=== PATIENT | female | born 1955 | race Caucasian/White ===

== ENCOUNTER 2016-08-27 18:47 | Emergency (ER) | payer BC ==
[2016-08-27] MEDS ORDERED: IBUPROFEN 600 MG TABLET PO ONE (19:02)
--- NOTE | 2016-08-27 19:08 | Emergency Department Record ---
History of Present Illness - General Chief Complaint: Fall Injury Stated Complaint: FALL INJURY TO RT HAND Time Seen by Provider: 08/27/16 19:02 Source: Patient Mode of Arrival: Ambulatory Limitations: No limitations - History of Present Illness Initial Comments: 61 yo female presents to ED with a CC of right thumb and wrist pain following a fall approximately 2 hours ago. Patient reports the majority of her pain symptoms are to the base of the thumb with movement. Patient denies pain or injury over the elbow or shoulder. Patient denies other injury, and denies health problems at her baseline. MD Complaint: Fall Onset/Timin -: Hour(s) Fall From: Standing When Fall Occurred: 1-3 hours [employer] Fall Witnessed: Yes, by family Place Fall Occurred: Other Loss of Consciousness: None Prolonged Down Time?: No Symptoms Prior to Fall: None Location - Extremities: Right: Forearm, Hand Severity: Moderate Quality: Aching - Narcisa Coma Scale Eye Response: (4) Open spontaneously Motor Response: (6) Obeys commands Verbal Response: (5) Oriented Narcisa Total: 15 - Related Data Home Medications Medication Instructions Recorded Confirmed Last Taken Cetirizine HCl [Zyrtec] 10 mg PO DAILY 08/27/16 08/27/16 Unknown Fluoxetine HCl [Prozac] 20 mg PO DAILY 08/27/16 08/27/16 Unknown Methylphenidate HCl [Concerta] 36 mg PO DAILY 08/27/16 08/27/16 Unknown Allergies Allergy/AdvReac Type Severity Reaction Status Date / Time adhesive tape Allergy HYPERSENSIT Verified 08/27/16 19:05 IVITY nitrofurantoin Allergy PT UNSURE Verified 08/27/16 19:05 [From Macrodantin] OF REACTION venlafaxine [From Effexor] Allergy HIVES Verified 08/27/16 19:05 Review of Systems Constitutional: Denies: Chills, Fever, Malaise, Night sweats Eyes: Denies: Eye discharge, Eye pain ENT: Denies: Congestion, Ear pain, Epistaxis Respiratory: Denies: Cough, Dyspnea Cardiovascular: Denies: Chest pain, Dyspnea on exertion Endocrine: Denies: Fatigue, Heat or cold intolerance Gastrointestinal: Denies: Abdominal pain, Nausea, Vomiting Genitourinary: Denies: Incontinence, Retention Musculoskeletal: Reports: Arthralgia. Denies: Back pain, Gout, Joint swelling Skin: Denies: Bruising, Change in color Neurological: Denies: Abnormal gait, Confusion, Headache, Seizure Psychiatric: Denies: Anxiety Hematological/Lymphatic: Denies: Anemia, Blood Clots Physical Exam - General General Appearance: Alert, Oriented x3, Cooperative, Mild distress Limitations: No limitations - Head Head exam: Atraumatic, Normocephalic, Normal inspection Head exam detail: negative: Abrasion, Contusion, Elliott's sign, General tenderness, Hematoma, Laceration - Eye Eye exam: Normal appearance. negative: Conjunctival injection, Periorbital swelling, Periorbital tenderness, Scleral icterus - ENT Ear exam: negative: Auricular hematoma, Auricular trauma Nasal Exam: negative: Active bleeding, Discharge, Dried blood Mouth exam: negative: Drooling, Laceration, Tongue elevation - Neck Neck exam: Normal inspection. negative: Meningismus, Tenderness - Respiratory Respiratory exam: Normal lung sounds bilaterally. negative: Decreased breath sounds, Prolonged expiratory - Cardiovascular Cardiovascular Exam: Regular rate, Normal rhythm, Normal heart sounds - GI/Abdominal GI/Abdominal exam: Soft. negative: Organomegaly, Rebound, Rigid, Tenderness - Rectal Rectal exam: Deferred - exam: Deferred - Extremities Extremities exam: Tenderness (TTP over the right base of the thumb and distal forearm on examination, strong distal radial pulse on examination). negative: Calf tenderness, Pedal edema - Back Back exam: Denies: CVA tenderness (R), CVA tenderness (L) - Neurological Neurological exam: Alert, Normal gait, Oriented X3 - Psychiatric Psychiatric exam: Normal affect, Normal mood - Skin Skin exam: Normal color. negative: Abrasion Type of lesion: negative: abrasion Course - Reevaluation(s) Reevaluation #1: 08/27/16 19:48 Right Hand: No acute fracture, arthritic changes are present Right Wrist: No acute process Patient was updated on all results, will place in velcro splint for support with instructions to use Motrin as directed. Patient appears stable for discharge at this time. Disposition Disposition: Discharge Clinical Impression: Hand contusion Qualifiers: Encounter type: initial encounter Laterality: right Qualified Code(s): S60.221A - Contusion of right hand, initial encounter Disposition: Home, Self-Care Condition: (2) Stable Instructions: Contusion in Adults (ED) Additional Instructions: Return to ED if your symptoms worsen or if you have any concerns. Ibuprofen as directed. Follow-up with your family doctor in 3-5 days. Velcro splint as needed for support. Forms: Patient Portal Access Time of Disposition: 19:51 Quality - Quality Measures Quality Measures: N/A - Blood Pressure Screening Blood Pressure Classification: Normal BP Reading Systolic Measurement: 107 Diastolic Measurement: 73 Screening for High Blood Pressure: < Normal BP, F/U Not Required > [[id number]] Normal BP Follow-up Interventions: No follow-up required
--- NOTE | 2016-08-29 08:17 | RADIOLOGY REPORT ---
EXAM: RIGHT HAND HISTORY: RIGHT HAND PAIN STATUS POST FALL. TECHNIQUE: Three views of the right hand were obtained. Comparison: Right wrist series from the same date. Encounter: Initial. FINDINGS: The bones appear intact. There is no visible acute fracture or dislocation. There are diffuse arthritic changes which are greatest at the scaphotrapezial/trapezoidal articulations and first carpal metacarpal joint. Mild arthritic changes are present within the first metacarpal phalangeal joint as well as within the interphalangeal joints of the thumb and fingers. No focal soft tissue abnormalities are are identified. IMPRESSION: 1. NO ACUTE RIGHT HAND PATHOLOGY. 2. ARTHRITIC CHANGES ABOVE. JOB NUMBER: [id number] MTDD
--- NOTE | 2016-08-29 08:20 | RADIOLOGY REPORT ---
EXAM: RIGHT WRIST HISTORY: RIGHT WRIST PAIN STATUS POST FALL. TECHNIQUE: Four views of the right wrist were obtained. Comparison: Right hand series from the same date. FINDINGS: There are moderate to severe arthritic changes at the scaphotrapezial and scaphotrapezoidal articulations. There are moderate arthritic changes at the first carpal metacarpal joint with joint space narrowing, marginal osteophyte formation, and subchondral cyst formation. The bones and joints are otherwise normal. There is no visible acute fracture or dislocation. IMPRESSION: 1. NO ACUTE RIGHT WRIST PATHOLOGY. 2. ARTHRITIC CHANGES ABOVE. JOB [facility]BER[facility] [id number] [facility]
== END 2016-08-27 20:00 | disposition home or self-care (01) ==
LOC: ER 18:47
DX: S60.221A Contusion of right hand, initial encounter (principal); M25.531 Pain in right wrist; W01.0XXA Fall on same level from slipping, tripping and stumbling without subsequent striking against object, initial encounter
CPT/HCPCS: 99283